=== PATIENT | male | born 1960 | race Asian ===

== ENCOUNTER 2019-12-01 15:09 | Observation (INO) ==
[2019-12-01] MEDS ORDERED: SODIUM CHLORIDE 0.9% 1000ML 500 ML IV ONE (15:24)
--- NOTE | 2019-12-01 15:38 | XRay Report ---
XR chest 1V portable HISTORY: 58 years-old Male Hypertension COMPARISON: None TECHNIQUE: Portable AP view of the chest FINDINGS: Cardiomediastinal and hilar silhouettes are within normal limits. There is no pneumothorax, pleural e ffusion, airspace consolidation or overt pulmonary edema. Bones of the chest appear grossly intact. M ild convex left curvature of the lower thoracic spine. IMPRESSION: No acute process. ACT 112: Negative or not required by law. The above report was generated using voice recognition software. It may contain grammatical, syntax o r spelling errors. Electronically signed by: Rajesh Ring M.D. 12/01/2019 3:37 PM
[2019-12-01 15:54] LABS: Basophils # (auto) 0.02 K/uL (0-0.2); Basophils % (auto) 0.3 %; Eosinophils # (auto) 0.05 K/uL (0-0.5); Eosinophils % (auto) 0.8 %; Hematocrit (blood only) 38.9 % (42-52); Hemoglobin 13.9 g/dL (14.0-18.0); Immature Granulocytes # (auto) 0.01 K/uL (0.00-0.02); Immature Granulocytes % (auto) 0.2 %; Lymphocytes % (auto) 20.2 %; Mean Corpuscular Hemoglobin 30.8 pg (25-34); Mean Corpuscular Hgb Conc 35.7 g/dL (32-36); Mean Corpuscular Volume 86.1 fL (80-100); Monocytes # (auto) 0.63 K/uL (0.11-0.59); Monocytes % (auto) 9.8 %; Neutrophils # (auto) 4.43 K/uL (1.4-6.5); Neutrophils % (auto) 68.7 %; Platelet Count 211 K/uL (130-400); RDW Coefficient of Variation 11.7 % (11.5-14.5); RDW Standard Deviation 37.1 fL (36.4-46.3); Red Blood Count 4.52 M/uL (4.7-6.1); White Blood Count 6.44 K/uL (4.8-10.8)
[2019-12-01 16:13] LABS: Alanine Aminotransferase 26 U/L (12-78); Albumin Level 4.2 gm/dl (3.4-5.0); Aspartate Aminotransferase 18 U/L (15-37); BUN Creatinine Ratio 10.9 (10-20); Blood Urea Nitrogen 9 mg/dl (7-18); Carbon Dioxide 25 mmol/L (21-32); Chloride 94 mmol/L (98-107); Est GFR (African American) 114.6; Est GFR (Non-African American) 98.9; Glucose 148 mg/dl (70-99); Potassium 3.9 mmol/L (3.5-5.1); Sodium 128 mmol/L (136-145)
[2019-12-01 16:16] LABS: Appearance Urine Clear (Clear); Bilirubin Urine Negative (Negative); Blood Urine Negative (Negative); Color Urine Yellow; Glucose Urine UA Negative (Negative); Ketones Urine Negative (Negative); Leukocyte Esterase Urine Negative (Negative); Nitrite Urine Negative (Negative); Protein Urine Negative (Negative); Specific Gravity Urine 1.009 (1.000-1.030); Urobilinogen Urine Negative (Negative)
[2019-12-01 16:16] LABS: Albumin Globulin Ratio 1.2 (0.9-2); Alkaline Phosphatase 76 U/L (45-117); Bilirubin,Total 0.5 mg/dl (0.2-1); Globulin 3.6 gm/dl (2.5-4.0); Phosphorus 3.1 mg/dl (2.5-4.9); Total Protein 7.8 gm/dl (6.4-8.2)
[2019-12-01 16:27] LABS: Urine Potassium 15.7 mmol/L
--- NOTE | 2019-12-01 16:28 | Electrocardiogram Report ---
Test Reason : Blood Pressure : / mmHG Vent. Rate : 092 BPM Atrial Rate : 092 BPM P-R Int : 226 ms QRS Dur : 080 ms QT Int : 350 ms P-R-T Axes : 068 082 079 degrees QTc Int : 432 ms Sinus rhythm with 1st degree A-V block Otherwise normal ECG No previous ECGs available Confirmed by Jonathan Chávez ([id number]) on 12/01/2019 4:28:13 PM Referred By: REFERRED SELF Confirmed By:Jonathan Chávez
--- NOTE | 2019-12-01 18:02 | Emergency Department Note ---
Impression & Plan Hypertension, Hyponatremia ED Provider Note NAME: JANINA ALDRICH III AGE: 24 SEX: M : 12/20/1994 ARRIVES VIA: Ambulance INFORMANT: Patient, ED PROVIDER(S): Ayan Nielsen MD Chief Complaint: Hypertension HPI: Patient was seen due to concern for labile blood pressures. The patient states that he has noted some change in his systolic blood pressure in the 140s and occasional to the 160s. The patient states that he has been compliant with his medications. 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 The patient has been on lisinopril 5 mg and amlodipine 2.5 mg. Patient did have a recent change where he was started on Coreg and recently taken off this. The patient states that he is also had some issues with some mild hyperkalemia and hyponatremia. Patient has been started on urea at the recommendation of his primary installation drafter Dr. Mena. Patient denies any active chest pains or shortness of breath. The patient does complain of a mild nonspecific headache which is been chronic and the patient is not taken anything for this. The patient denies any fevers, chills, vision changes. Patient denies any recent change in diet, caffeine, nicotine, alcohol, or drugs. ROS: See HPI for pertinent positives and negatives. A total of 10 systems were reviewed and otherwise negative. Past medical history: See below Surgical history: See below Social history: See below Physical Exam: GENERAL: Wearing glasses and a mask. NAD, non-toxic. EYE EXAM: Normal conjunctiva. PERRL, no anisocoria and EOM's grossly intact w/o pain. NECK: Supple, no nuchal rigidity, no adenopathy, non-tender. No signs of meningismus. LUNGS: Clear to auscultation. Normal chest wall mechanics. HEART: NSR, no MRG. ABDOMEN: Abdomen soft, non-tender, normo-active bowel sounds, no masses, no rebound or guarding. BACK: No CVA TTP. SKIN: No rashes and no bruising. UPPER EXTREMITIES: Upper extremities are grossly normal. LOWER EXTREMITIES: Grossly normal, no edema. NEURO EXAM: A&O x3, cranial nerves II-XII grossly intact, normal speech, moves all 4 extremities on command w/o issue. Differential diagnoses: Benign hypertension, hypertensive emergency, cardiovascular pathology, toxicologic, pheochromocytoma, electrolyte abnormality, renal disease, endorgan damage, as well as other pathologies. Course: Patient was seen and evaluated the bedside. Full history physical exam was performed. EKG: Indication: Hypertension Sinus rhythm with first-degree AV block, rate of 92, mild elevation inferiorly likely consistent with benign early repolarization. Prior EKGs for comparison. Imaging Studies: Radiology results as stated below per my review in the radiologist's interpretation: XR chest 1V portable HISTORY: 58 years-old Male Hypertension COMPARISON: None TECHNIQUE: Portable AP view of the chest FINDINGS: Cardiomediastinal and hilar silhouettes are within normal limits. There is no pneumothorax, pleural effusion, airspace consolidation or overt pulmonary edema. Bones of the chest appear grossly intact. Mild convex left curvature of the lower thoracic spine. IMPRESSION: No acute process. ACT 112: Negative or not required by law. The above report was generated using voice recognition software. It may contain grammatical, syntax or spelling errors. Electronically signed by: Rajesh Ring M.D. 12/01/2019 3:37 PM Dictated: 12/01/19 153 Transcribed: 12/01/19 153 Cardiac monitoring: An order was placed for continuous cardiac monitoring. The monitor shows a rate of 92 with sinus rhythm. MDM: Patient was seen due to concern for hypertension. The patient has a normal white count virtually normal hemoglobin at 13.9 and platelet count. The patient does have mild hyponatremia at 128. Urine and serum awesome's were also obtained. The patient does have slightly low serum osmolality. His glucose is borderline elevated at 148. Urinalysis is negative. Urine osmolality 242 which is low. The patient has had some stable blood pressures but after further discussion with the patient the patient was still concerned about his blood pressure. At the time of discussing going and after discussion with the installation drafter, whom had recommended increasing his lisinopril, I did speak with Drs. Aparicio, friends of the patient, they were concerned given the weekend that he may benefit from continued observation and medical management. I did speak with the on-call hospitalist. The patient was admitted to the medicine service for hyponatremia and hypertension by Dr. Paniagua. Past Med/Surg History Medical History Hypertension Hyponatremia Surgical History No pertinent past surgical history Social History Smoking Status: Never smoker Feels Safe at Home: Yes Allergies Allergies Allergy/AdvReac Type Severity Reaction Status Date / Time ciprofloxacin [From Cipro] Allergy Intermediate Flushing Verified 12/01/19 17:04 Home Meds Home Medications Medication Instructions Recorded Confirmed amlodipine 2.5 mg PO QPM 12/01/19 12/01/19 levothyroxine 75 mcg PO QAM 12/01/19 12/01/19 lisinopril 5 mg PO QPM 12/01/19 12/01/19 metformin See Rx Instructions .ROUTE .COMPLEX 12/01/19 12/01/19 simvastatin 10 mg PO QPM 12/01/19 12/01/19 urea [Ure-Na] 15 g PO QAM 12/01/19 12/01/19 Results & Data (ED) Vital Signs Vital Signs - 24 hr 12/01/19 15:12 12/01/19 16:04 12/01/19 16:07 Temperature 36.8 C Temperature Source Oral Pulse Rate 102 H 93 H Pulse Rate from SpO2 Sensor 90 Pulse Rhythm Regular Respiratory Rate 18 17 Respiratory Effort / Characteristics Non-Labored Spontaneous Respiratory Depth Normal Respiratory Pattern Regular Blood Pressure 147/110 H 147/91 H Blood Pressure Mean 122 96 Pulse Oximetry 100 98 99 Oxygen Delivery Method Room Air Room Air Sepsis Recent Fever Within 48 Hours No Sepsis New/Unexplained Change in Mental Status No Sepsis Action Taken by Nursing No Action Required 12/01/19 16:30 12/01/19 16:31 12/01/19 17:00 Temperature Temperature Source Pulse Rate 95 H 94 H 84 Pulse Rate from SpO2 Sensor 96 H 93 H 83 Pulse Rhythm Respiratory Rate 27 H 20 13 Respiratory Effort / Characteristics Respiratory Depth Respiratory Pattern Blood Pressure 142/99 H Blood Pressure Mean 106 Pulse Oximetry 100 99 98 Oxygen Delivery Method Sepsis Recent Fever Within 48 Hours Sepsis New/Unexplained Change in Mental Status Sepsis Action Taken by Nursing 12/01/19 17:01 12/01/19 17:30 12/01/19 17:31 Temperature Temperature Source Pulse Rate 89 89 90 Pulse Rate from SpO2 Sensor 88 91 H 90 Pulse Rhythm Respiratory Rate 16 14 22 Respiratory Effort / Characteristics Respiratory Depth Respiratory Pattern Blood Pressure 140/91 168/97 H Blood Pressure Mean 98 109 Pulse Oximetry 98 99 98 Oxygen Delivery Method Sepsis Recent Fever Within 48 Hours Sepsis New/Unexplained Change in Mental Status Sepsis Action Taken by Nursing 12/01/19 18:00 12/01/19 18:01 Temperature Temperature Source Pulse Rate 99 H 94 H Pulse Rate from SpO2 Sensor 98 H 95 H Pulse Rhythm Respiratory Rate 21 21 Respiratory Effort / Characteristics Respiratory Depth Respiratory Pattern Blood Pressure 159/112 H Blood Pressure Mean 123 Pulse Oximetry 98 98 Oxygen Delivery Method Sepsis Recent Fever Within 48 Hours Sepsis New/Unexplained Change in Mental Status Sepsis Action Taken by Usp Medications Current Medication List: was personally reviewed by me Laboratory Data Attestation: I reviewed the patient's lab results. Result diagrams: 12/01/19 15:45 12/01/19 15:45 Lab Results 12/01/19 12/01/19 12/01/19 Range/Units 15:45 15:45 15:45 WBC 6.44 (4.8-10.8) K/uL RBC 4.52 L (4.7-6.1) M/uL Hgb 13.9 L (14.0-18.0) g/dL Hct 38.9 L (42-52) % MCV 86.1 (80-100) fL MCH 30.8 (25-34) pg MCHC 35.7 (32-36) g/dL RDW Std Deviation 37.1 (36.4-46.3) fL RDW Coeff of Fredi 11.7 (11.5-14.5) % Plt Count 211 (130-400) K/uL MPV 9.0 (7.4-10.4) fL Immature Gran % (Auto) 0.2 % Neut % (Auto) 68.7 % Lymph % (Auto) 20.2 % [place] % (Auto) 9.8 % Eos % (Auto) 0.8 % Baso % (Auto) 0.3 % Neut # (Auto) 4.43 (1.4-6.5) K/uL Lymph # (Auto) 1.30 (1.2-3.4) K/uL [place] # (Auto) 0.63 H (0.11-0.59) K/uL Eos # (Auto) 0.05 (0-0.5) K/uL Baso # (Auto) 0.02 (0-0.2) K/uL Immature Gran # (Auto) 0.01 (0.00-0.02) K/uL Sodium 128 L (136-145) mmol/L Potassium 3.9 (3.5-5.1) mmol/L Chloride 94 L (98-107) mmol/L Carbon Dioxide 25 (21-32) mmol/L Anion Gap 9.0 (3-11) BUN 9 (7-18) mg/dl Creatinine 0.82 (0.6-1.4) mg/dl Est Cr Clr Drug Dosing Not Reportable Est GFR ( Amer) 114.6 Est GFR (Non-Af Amer) 98.9 BUN/Creatinine Ratio 10.9 (10-20) Glucose 148 H (70-99) mg/dl Osmolality 273 L (280-300) mOsm/kg Calcium 9.0 (8.5-10.1) mg/dl Phosphorus 3.1 (2.5-4.9) mg/dl Magnesium 2.0 (1.8-2.4) mg/dl Total Bilirubin 0.5 (0.2-1) mg/dl AST 18 (15-37) U/L ALT 26 (12-78) U/L Alkaline Phosphatase 76 (45-117) U/L Total Protein 7.8 (6.4-8.2) gm/dl Albumin 4.2 (3.4-5.0) gm/dl Globulin 3.6 (2.5-4.0) gm/dl Albumin/Globulin Ratio 1.2 (0.9-2) Urine Color Urine Appearance (Clear) Urine pH (4.5-7.5) Ur Specific [place] (1.000-1.030) Urine Protein (Negative) Urine Glucose (UA) (Negative) Urine Ketones (Negative) Urine Blood (Negative) Urine Nitrite (Negative) Urine Bilirubin (Negative) Urine Urobilinogen (Negative) Ur Leukocyte Esterase (Negative) Urine Osmolality (500-800) mOsm/kg Urine Sodium mmol/L Urine Potassium mmol/L Urine Chloride mmol/L 12/01/19 12/01/19 12/01/19 Range/Units 16:03 16:03 16:03 WBC (4.8-10.8) K/uL RBC (4.7-6.1) M/uL Hgb (14.0-18.0) g/dL Hct (42-52) % MCV (80-100) fL MCH (25-34) pg MCHC (32-36) g/dL RDW Std Deviation (36.4-46.3) fL RDW Coeff of Fredi (11.5-14.5) % Plt Count (130-400) K/uL MPV (7.4-10.4) fL Immature Gran % (Auto) % Neut % (Auto) % Lymph % (Auto) % [place] % (Auto) % Eos % (Auto) % Baso % (Auto) % Neut # (Auto) (1.4-6.5) K/uL Lymph # (Auto) (1.2-3.4) K/uL [place] # (Auto) (0.11-0.59) K/uL Eos # (Auto) (0-0.5) K/uL Baso # (Auto) (0-0.2) K/uL Immature Gran # (Auto) (0.00-0.02) K/uL Sodium (136-145) mmol/L Potassium (3.5-5.1) mmol/L Chloride (98-107) mmol/L Carbon Dioxide (21-32) mmol/L Anion Gap (3-11) BUN (7-18) mg/dl Creatinine (0.6-1.4) mg/dl Est Cr Clr Drug Dosing Est GFR ( Amer) Est GFR (Non-Af Amer) BUN/Creatinine Ratio (10-20) Glucose (70-99) mg/dl Osmolality (280-300) mOsm/kg Calcium (8.5-10.1) mg/dl Phosphorus (2.5-4.9) mg/dl Magnesium (1.8-2.4) mg/dl Total Bilirubin (0.2-1) mg/dl AST (15-37) U/L ALT (12-78) U/L Alkaline Phosphatase (45-117) U/L Total Protein (6.4-8.2) gm/dl Albumin (3.4-5.0) gm/dl Globulin (2.5-4.0) gm/dl Albumin/Globulin Ratio (0.9-2) Urine Color Yellow Urine Appearance Clear (Clear) Urine pH 7.0 (4.5-7.5) Ur Specific [place] 1.009 (1.000-1.030) Urine Protein Negative (Negative) Urine Glucose (UA) Negative (Negative) Urine Ketones Negative (Negative) Urine Blood Negative (Negative) Urine Nitrite Negative (Negative) Urine Bilirubin Negative (Negative) Urine Urobilinogen Negative (Negative) Ur Leukocyte Esterase Negative (Negative) Urine Osmolality 242 L (500-800) mOsm/kg Urine Sodium 50 mmol/L Urine Potassium 15.7 mmol/L Urine Chloride 47 mmol/L Administered Medications Discontinued Medications Sodium Chloride (Nss 1000ml) 500 mls @ 999 mls/hr IV .Q31M ONE Stop: 12/01/19 15:54 Last Infusion: 12/01/19 16:15 Dose: 0 mls/hr Documented by: [id number] Admin: 12/01/19 15:44 Dose: 999 mls/hr Documented by: [id number] Discharge Plan Visit Data Chief Complaint: Hypertension Stated Complaint: HIGH BLOOD PRESSURE ED Provider: Ayan Nielsen Discharge Problem: Hypertension, Hyponatremia Patient Disposition: Being Evaluated by Hospitalist Prescriptions Prescriptions: No Action metformin 500 mg tablet See Rx Instructions .ROUTE .COMPLEX RF: 0 simvastatin 10 mg tablet 10 mg PO QPM RF: 0 amlodipine 2.5 mg tablet 2.5 mg PO QPM RF: 0 levothyroxine 75 mcg tablet 75 mcg PO QAM RF: 0 lisinopril 5 mg tablet 5 mg PO QPM RF: 0 Ure-Na 15 gram powder in packet 15 g PO QAM RF: 0 Referrals Referrals: Anshu Rosales MD [Primary Care Provider] -
[2019-12-01] MEDS ORDERED: AMLODIPINE BESYLATE 5 MG TAB PO ONE ×2 (19:14→22:34)
--- NOTE | 2019-12-01 19:37 | History & Physical Report ---
Date of Service December 01, 2019 Assessment & Plan (1) Chronic hyponatremia: -Admit to [facility] with telemetry -Patient presenting from home with reports of hypertension -recent medication adjustments as per HPI -History of chronic hyponatremia, follows with nephrology and is typically managed on urea and 1.6 L fluid restriction -In the ED, Na+ 128 (baseline runs in the low 130s) -Received 500 cc NSS -Given that current sodium is very close to patient's baseline, will continue home regimen of urea and 1.60 fluid restriction for now -Nephrology consult, input appreciated (2) HTN (hypertension): -Longstanding history of hypertension that was typically managed with lisinopril 2.5 mg daily, with recent medication adjustments as noted in HPI -Recent intolerance noted to carvedilol -Due to hyponatremia, will reduce lisinopril to 2.5 mg daily and increase amlodipine to 5 mg daily -? If anxiety is contributing to patient's elevated BP and symptoms; low-dose PRN Xanax ordered (3) DM type 2 (diabetes mellitus, type 2): -Hgb A1c 6.1 08/2019 -Monitor BSG, add NovoLog per protocol if needed (4) Hypothyroidism: -Check TSH -Continue levothyroxine (5) DVT prophylaxis: -SCDs, ambulate History of Present Illness Chief Complaint: Hypertension Primary Care Provider: Anshu Rosales MD 58-year-old male with PMH DM type II, chronic hyponatremia, HTN, hypothy roidism, and other problems listed below who presents the ED for evaluation of hypertension. Patient was seen by cardiology for routine appointment on 11/16/2019, and had reported increasing blood pressures since lisinopril was previously reduced to 2.5 mg (dose was reduced due to chronic hyponatremia). Patient was then placed on low-dose carvedilol 3.125 mg twice daily. Patient reports he had tolerated this medication well for about 1 week however he then developed episodes of high blood pressure spikes and feelings of lightheadedness, dizziness, dry mouth, shortness of breath, palpitations. Carvedilol was then discontinued and patient received advice to take lisinopril 10 mg daily for 1 day. Dose was then reduced to lisinopril 5 mg daily and amlodipine 2.5 mg added 2 days ago. Patient reports that this morning he felt poorly with similar symptoms as before. He also notes feelings of anxiety with the symptoms. He reports taking his blood pressure and it was around 150/90. Patient then came to the ED for further evaluation. Patient reports following his chronic 1.6 L fluid restriction and no other changes in diet or medications. Denies any other recent illnesses, fevers, chills. No syncopal events. Denies abdominal pain, nausea, vomiting, diarrhea. No urinary symptoms. In the ED, sodium was found to be 128. BP is mildly elevated with highest being 168/97. Patient was given NSS 500 cc. Allergies Allergy/AdvReac Type Severity Reaction Status Date / Time ciprofloxacin [From Cipro] Allergy Intermediate Flushing Verified 12/01/19 17:04 Home Medications Home Medications Medication Instructions Recorded Confirmed Type amlodipine 2.5 mg PO QPM 12/01/19 12/01/19 History aspirin 81 mg PO DAILY 12/01/19 12/01/19 History coenzyme Q10 [Co Q-10] 100 mg PO BID 12/01/19 12/01/19 History cyanocobalamin (vitamin B-12) 1,000 mcg PO DAILY 12/01/19 12/01/19 History folic acid 0.4 mg PO DAILY 12/01/19 12/01/19 History levothyroxine 75 mcg PO QAM 12/01/19 12/01/19 History lisinopril 5 mg PO QPM 12/01/19 12/01/19 History metformin See Rx Instructions .ROUTE .COMPLEX 12/01/19 12/01/19 History omega-3 fatty acids [Fish Oil] 500 mg PO DAILY 12/01/19 12/01/19 History simvastatin 10 mg PO QPM 12/01/19 12/01/19 History urea [Ure-Na] 15 g PO QAM 12/01/19 12/01/19 History Past Med/Surg History Medical History Chronic hyponatremia DM type 2 (diabetes mellitus, type 2) Hypertension Hypothyroidism Surgical History H/O vasectomy S/P right knee arthroscopy Family History Father Hypertension Stroke Mother Hypertension Social History Smoking Status: Never smoker Hx Alcohol Use: No Feels Safe at Home: Yes Review of Systems Review of Systems: ROS per HPI, all other systems reviewed and negative Physical Exam Constitutional: WD/WN, vitals as above Eyes: PERRL, conjunctivae normal, anicteric sclerae ENMT: external ear and nose normal, oropharynx normal Respiratory: normal respiratory effort, lungs clear to auscultation Cardiovascular: Rate/Rhythm: regular rate and regular rhythm Vessels: normal peripheral pulses Extremities: no edema Gastrointestinal (Abdomen): normal bowel sounds, soft, nontender, no hepatosplenomegaly Musculoskeletal: no cyanosis or clubbing, extremities motor strength 5/5 Skin: no rashes, warm and dry Neurologic: PERRL, EOMI, accommodation nl, no face palsy, no dysarthria Psychiatric: A+Ox3, euthymic affect Results & Data Results & Data ([facility]) Vital Signs (Past 12 Hours) Vital Signs Temp Pulse Resp BP Pulse Ox 12/01/19 18:01 94 H 21 98 12/01/19 18:00 99 H 21 159/112 H 98 12/01/19 17:31 90 22 98 12/01/19 17:30 89 14 168/97 H 99 12/01/19 17:01 89 16 140/91 98 12/01/19 17:00 84 13 98 12/01/19 16:31 94 H 20 99 12/01/19 16:30 95 H 27 H 142/99 H 100 12/01/19 16:07 99 12/01/19 16:04 93 H 17 147/91 H 98 12/01/19 15:12 36.8 C 102 H 18 147/110 H 100 Laboratory Results Short CBC 12/01/19 Range/Units 15:45 WBC 6.44 (4.8-10.8) K/uL Hgb 13.9 L (14.0-18.0) g/dL Hct 38.9 L (42-52) % Plt Count 211 (130-400) K/uL BMP 12/01/19 15:45 Sodium 128 L Potassium 3.9 Chloride 94 L Carbon Dioxide 25 BUN 9 Creatinine 0.82 Glucose 148 H Calcium 9.0 Liver Function 12/01/19 Range/Units 15:45 Total Bilirubin 0.5 (0.2-1) mg/dl AST 18 (15-37) U/L ALT 26 (12-78) U/L Alkaline Phosphatase 76 (45-117) U/L Albumin 4.2 (3.4-5.0) gm/dl Urine 12/01/19 Range/Units 16:03 Urine Color Yellow Urine Appearance Clear (Clear) Urine pH 7.0 (4.5-7.5) Ur Specific [place] 1.009 (1.000-1.030) Urine Protein Negative (Negative) Urine Glucose (UA) Negative (Negative) Diagnostic Findings CXR IMPRESSION: No acute process. Code Status & VTE Plan VTE Prophylaxis Plan VTE Prophylaxis will be ordered: Yes Supervising Physician Co-Signing Physician Notes Patient seen and examined by me, care coordinated with SEAN Gomez, please refer to her note above for further detail. Pt is a 58 y/o male with DM type II, chronic hyponatremia, HTN, hypothyroidism, who presents for evaluation of hypertension. Patient was seen by cardiology for routine appointment on 11/16/2019, and had reported increasing blood pressures since lisinopril was previously reduced to 2.5 mg (dose was reduced due to chronic hyponatremia). Patient was then placed on low-dose carvedilol 3.125 mg twice daily. Unfortunately it seems like patient had difficulty tolerating this medication, he may also have underlying anxiety. Currently he says he feels better. He is lying in bed, in no acute distress. His is at the bedside. He is alert and oriented and he is answering questions appropriately. Heart sounds are regular, and lung sounds are clear to auscultation bilaterally without any wheezing rhonchi or crackles noted. Abdomen is soft, thin, nondistended, positive bowel sounds, nontender to palpation. There is no lower extremity edema. There is no ascites. Moving all 4 extremities spontaneously without difficulty. Skin is warm, dry, no rashes or lesions noted. Patient received 500 cc of NS in the ED. Will decrease lisinopril to 2.5 and increased amlodipine to 5 mg daily, hold Coreg. Nephrology consulted for further input. Kelli Paniagua MD
[2019-12-01] MEDS ORDERED: ACETAMINOPHEN 325 MG TAB PO PRN (20:48)
[2019-12-01] MEDS ORDERED: ALPRAZolam 0.25 MG TABLET PO PRN (20:48)
[2019-12-01] MEDS ORDERED: SIMVASTATIN 10 MG TAB PO SCH (21:00)
[2019-12-02] MEDS ORDERED: LEVOTHYROXINE SODIUM 75 MCG TABLET PO SCH (06:30)
[2019-12-02 07:48] LABS: Hematocrit (blood only) 42.3 % (42-52); Hemoglobin 14.4 g/dL (14.0-18.0); Mean Corpuscular Hemoglobin 30.5 pg (25-34); Mean Corpuscular Volume 89.6 fL (80-100); Mean Platelet Volume 9.4 fL (7.4-10.4); Platelet Count 242 K/uL (130-400); RDW Coefficient of Variation 12.1 % (11.5-14.5); RDW Standard Deviation 39.8 fL (36.4-46.3); Red Blood Count 4.72 M/uL (4.7-6.1); White Blood Count 4.48 K/uL (4.8-10.8)
[2019-12-02 08:09] LABS: BUN Creatinine Ratio 13.3 (10-20); Calcium 9.3 mg/dl (8.5-10.1); Creatinine Clr Calc Pharmacy 83.5 ml/min; Est GFR (African American) 117.6; Est GFR (Non-African American) 101.4; Potassium 4.2 mmol/L (3.5-5.1)
[2019-12-02] MEDS ORDERED: FOLIC ACID 400 MCG TAB PO SCH (09:00)
[2019-12-02] MEDS ORDERED: CYANOCOBALAMIN 500 MCG TABLET (VITAMIN B-12) PO SCH (09:00)
[2019-12-02] MEDS ORDERED: UREA (URE-NA) 15 GM PACK PO SCH ×2 (09:00→21:00)
[2019-12-02] MEDS ORDERED: OMEGA-3 (PURIFIED FISH OIL) 1 GM CAP PO SCH (09:00)
[2019-12-02] MEDS ORDERED: ASPIRIN 81 MG ECTAB PO SCH (09:00)
--- NOTE | 2019-12-02 10:40 | Nephrology Consultation ---
Date of Consultation December 02, 2019 Assessment & Plan (1) HTN (hypertension): Patient with labile blood pressure recently in setting of numerous medication changes. His blood pressure was previously well controlled on lisinopril 5 mg daily. I suggested going back to the old regimen of lisinopril 5 mg daily which had worked well for him. I do not think lisinopril is a major cause of his hyponatremia. 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 He certainly has some anxiety about his blood pressure which is worsening the problem. He might need a few days of anxiolytic. From renal standpoint patient can be discharged to follow-up with Dr. Arellano in 1 to 2 weeks. (2) Chronic hyponatremia: Due to syndrome of inappropriate ADH. He is urine osmolality is 242 and urine sodium of 50. I recommend increasing his urea 15 g twice daily. He can continue the fluid restriction for about a week. Once his sodium is in the normal range, patient can drink freely. He will need a BMP mid next week History of Present Illness Reason for Consultation: Uncontrolled hypertension and hyponatremia Requesting Physician: Anna Ruiz MD Attending Physician: Anna Ruiz MD History of Present Illness This is 58-year-old male with history of hypertension, type 2 diabetes, hypothyroidism and chronic hyponatremia with baseline sodium in the low 130s who was admitted on 12/01/2019 with labile blood pressure and sodium of 128. Patient has had numerous medication changes in the past few weeks. His blood pressure was previously well controlled on lisinopril 5 mg daily for the past 10 years. Recently lisinopril was reduced to 2.5 mg for concerns of hyponatremia. Patient was then tried on Coreg which he did not tolerate. Most recently he was started on amlodipine 2.5 mg. He has been having headache and blood pressure ranging between 150 at 160s systolic. In the emergency room blood pressure was initially 140 systolic then increased to 160s in about 30 minutes and overnight his blood pressure was well controlled in the 120s systolic. He only received lisinopril 2.5 mg yesterday evening. He received a dose of Xanax. This morning he feels better denies any shortness of breath or headache. No vomiting or diar elham. Sodium was 130 this morning. was at the bedside. 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 [employer] Allergies Allergy/AdvReac Type Severity Reaction Status Date / Time ciprofloxacin [From Cipro] Allergy Intermediate Flushing Verified 12/01/19 17:04 Home Medications Home Medications Medication Instructions Recorded Confirmed Type amlodipine 2.5 mg PO QPM 12/01/19 12/01/19 History aspirin 81 mg PO DAILY 12/01/19 12/01/19 History coenzyme Q10 [Co Q-10] 100 mg PO BID 12/01/19 12/01/19 History cyanocobalamin (vitamin B-12) 1,000 mcg PO DAILY 12/01/19 12/01/19 History folic acid 0.4 mg PO DAILY 12/01/19 12/01/19 History levothyroxine 75 mcg PO QAM 12/01/19 12/01/19 History lisinopril 5 mg PO QPM 12/01/19 12/01/19 History metformin See Rx Instructions .ROUTE .COMPLEX 12/01/19 12/01/19 History omega-3 fatty acids [Fish Oil] 500 mg PO DAILY 12/01/19 12/01/19 History simvastatin 10 mg PO QPM 12/01/19 12/01/19 History urea [Ure-Na] 15 g PO QAM 12/01/19 12/01/19 History Patient History Medical History Chronic hyponatremia DM type 2 (diabetes mellitus, type 2) Hypertension Hypothyroidism Surgical History H/O vasectomy S/P right knee arthroscopy Family History Father Hypertension Stroke Mother Hypertension Social History Smoking Status: Never smoker Hx Alcohol Use: Yes Alcohol type: beer Hx Substance Use: No Preferred Language: [place] Communication Ability: Effective Purchasing Expeditor Required: No Beliefs That Will Affect Care: None Current Living Situation: Significant Other Other Information That Helps Us Care for You: No Feels Safe at Home: Yes Safety Concerns: Feels Safe At This Time Review of Systems Review of Systems: All systems reviewed & are unremarkable except as noted in HPI & below Physical Exam Physical Exam: General exam: Appears comfortable, no acute distress HEENT: Pupils are equal and reactive to light Neck: No JVD, neck is supple trachea is midline Respiratory system: Clear breath sounds bilaterally. Gastrointestinal: Abdomen is soft, non distended, non tender, bowel sounds are present CVS: Regular rate and rhythm. No murmurs, rubs or gallops Musculoskeletal: No joint or muscle tenderness Extremities: Non tender, no edema, peripheral pulses are present Neuro: Oriented, no tremors, no focal neurological deficits Skin: No rashes Results & Data ([facility]) Vital Signs (Past 12 Hours) Vital Signs Temp Pulse Pulse Resp BP BP Pulse Ox 12/02/19 07:55 74 12/02/19 07:45 36.4 C L 74 18 122/86 99 12/02/19 03:00 36.5 C 78 16 104/71 97 12/02/19 02:01 72 12/01/19 23:38 77 109/75 Laboratory Results 12/02/19 06:45 12/01/19 12/01/19 12/02/19 15:45 15:45 06:45 WBC 6.44 4.48 L RBC 4.52 L 4.72 MCV 86.1 89.6 MCH 30.8 30.5 MCHC 35.7 34.0 RDW Std Deviation 37.1 39.8 RDW Coeff of Fredi 11.7 12.1 Plt Count 211 242 MPV 9.0 9.4 Phosphorus 3.1 Albumin 4.2
--- NOTE | 2019-12-02 13:39 | Discharge Summary ---
Date of Service December 02, 2019 Admission HPI Per Admitting Provider 58-year-old male with PMH DM type II, chronic hyponatremia, HTN, hypothyroidism, and other problems listed below who presents the ED for evaluation of hypertension. Patient was seen by cardiology for routine appointment on 11/16/2019, and had reported increasing blood pressures since lisinopril was previously reduced to 2.5 mg (dose was reduced due to chronic hyponatremia). Patient was then placed on low-dose carvedilol 3.125 mg twice daily. Patient reports he had tolerated this medication well for about 1 week however he then developed episodes of high blood pressure spikes and feelings of lightheadedness, dizziness, dry mouth, shortness of breath, palpitations. Carvedilol was then discontinued and patient received advice to take lisinopril 10 mg daily for 1 day. Dose was then reduced to lisinopril 5 mg daily and amlodipine 2.5 mg added 2 days ago. Patient reports that this morning he felt poorly with similar symptoms as before. He also notes feelings of anxiety with the symptoms. He reports taking his blood pressure and it was around 150/90. Patient then came to the ED for further evaluation. Patient reports following his chronic 1.6 L fluid restriction and no other changes in diet or medications. Denies any other recent illnesses, fevers, chills. No syncopal events. Denies abdominal pain, nausea, vomiting, diarrhea. No urinary symptoms. In the ED, sodium was found to be 128. BP is mildly elevated with highest being 168/97. Patient was given NSS 500 cc. Principal Diagnosis HYPERTENSION LOW SODIUM Discharge Exam Constitutional WD/WN, vitals as above Eyes + anicteric sclerae ENMT external ear and nose normal, oropharynx normal Respiratory normal respiratory effort, lungs clear to auscultation Cardiovascular RRR, no murmur, no edema Gastrointestinal (Abdomen) normal bowel sounds, soft, nontender, no hepatosplenomegaly Musculoskeletal no cyanosis or clubbing, extremities motor strength 5/5 Skin no rashes, warm and dry Neurologic PERRL, EOMI, accommodation nl, no face palsy, no dysarthria Psychiatric A+Ox3, euthymic affect Discharge Data Allergies Allergy/AdvReac Type Severity Reaction Status Date / Time ciprofloxacin [From Cipro] Allergy Intermediate Flushing Verified 12/01/19 17:04 Consultations 12/01/19 18:29 ED Decision to Admit Stat 12/01/19 20:48 Consult Nephrology Routine Hospital Course (1) 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 lisinopril only, Increase p.o. urea 15 g twice daily, patient was in once daily Repeat basic metabolic panel in 1 week Follow-up with nephrology Dr. Mena in 1-2 weeks (2) HTN (hypertension): -Patient will be continued with lisinopril 5 mg daily, Appreciate input from nephrology DC Norvas as patient had episodes of hypotension (3) DM type 2 (diabetes mellitus, type 2): -Hgb A1c 6.1 08/2019 Insulin sliding scale (4) Hypothyroidism: -Continue levothyroxine (5) DVT prophylaxis: -SCDs, ambulate Total Time Total Time Spent Total Time Spent (In Minutes): 30 minutes Total Time Includes: Discharge Planning, Medication Reconciliation and Communication With Other Providers Discharge Plan Discharge Items Patient Disposition: Home - Self-Care Reason For Visit: HYPONATREMIA, HTN Discharge Diagnosis: HYPERTENSION LOW SODIUM Activity: Resume your previous activity Non-emergency contact: Primary Care Provider Call non-emergency contact if: you have any medication questions Follow-up/Referrals: Anshu Rosales MD [Primary Care Provider] - Diet: Heart Healthy Ambulatory Orders: Basic Metabolic Panel (Routine) Timeframe: 1 Week Location: Determined by Patient Ordered By: Anna Salmeron Attending Provider Instructions: HOSPITAL FOLLOW UP WITH FAMILY PHYSICIAN IN A WEEK LAB WORK : BASIC METABOLIC PANEL IN 1 WEEK , WITH NEXT PHYSICIAN VISIT DO NOT TAKE NORVASC /AMLODIPINE CONTINUE TO TAKE LISINOPRIL 5 MG DAILY Pending Studies at Discharge: Yes Studies:: [facility]: My [employer], Smoking Cessation Medications and DC Order Prescriptions: New alprazolam 0.25 mg Tablet 0.25 mg PO Q12H PRN (Reason: anxiety) Qty: 20 RF: 0 Ure-Na 15 gram powder in packet 15 g PO BID Qty: 60 RF: 0 Continued metformin 500 mg tablet See Rx Instructions .ROUTE .COMPLEX RF: 0 simvastatin 10 mg tablet 10 mg PO QPM RF: 0 levothyroxine 75 mcg tablet 75 mcg PO QAM RF: 0 lisinopril 5 mg tablet 5 mg PO QPM RF: 0 folic acid 400 mcg Tablet 0.4 mg PO DAILY RF: 0 aspirin 81 mg Tablet 81 mg PO DAILY RF: 0 coenzyme Q10 [Co Q-10] 100 mg Capsule 100 mg PO BID RF: 0 omega-3 fatty acids Capsule 500 mg PO DAILY RF: 0 cyanocobalamin (vitamin B-12) 1,000 mcg Capsule 1,000 mcg PO DAILY RF: 0 Discontinued amlodipine 2.5 mg tablet 2.5 mg PO QPM RF: 0 Discharge Orders: Discharge Order (Routine); Ordered 12/02/19 Ordered By: Anna Ruiz Admission Data Admit Date/Time: 12/01/19 19:11 Attending Provider: Anna Ruiz Admit Provider: Jairo Paniagua Primary Care Provider: Anshu Rosales Other Providers: Jairo Paniagua ; Iman Garcia Other Interventions: Discharge Summary Assessment (RN) Last Done: 12/02/19 12:25
[2019-12-02] MEDS ORDERED: AMLODIPINE BESYLATE 5 MG TAB PO SCH (21:00)
== END 2019-12-02 13:32 | disposition home or self-care (01) ==
LOC: ED 15:09 → 2N 19:11 → SUATTDRO 19:11 → INTOOBSV 19:11 → 2N 20:16